=== PATIENT | female | born 1955 | race Caucasian/White ===

== ENCOUNTER → 2016-09-14 | Outpatient (CLI) | payer MEDICAID | LOC: BRMIMAGING 13:42 | PROVIDERS: ATTEND Family Medicine | DX: M54.6 Pain in thoracic spine (principal); M41.9 Scoliosis, unspecified | CPT/HCPCS: 72072-PO ==

== ENCOUNTER → 2016-10-10 | Outpatient (CLI) | payer MEDICAID | LOC: BRMIMAGING 11:21 | PROVIDERS: ATTEND Family Medicine | DX: Z12.31 Encounter for screening mammogram for malignant neoplasm of breast (principal) | CPT/HCPCS: G0202 ==

== ENCOUNTER → 2016-10-26 | Outpatient (CLI) | payer MEDICAID | LOC: BRMIMAGING 09:53 | PROVIDERS: ATTEND Family Medicine | DX: R92.8 Other abnormal and inconclusive findings on diagnostic imaging of breast (principal) | CPT/HCPCS: G0206 ==

== ENCOUNTER → 2017-04-02 | Outpatient (CLI) | payer MEDICAID | LOC: BRMIMAGING 14:08 | PROVIDERS: ATTEND Family Medicine | DX: R22.32 Localized swelling, mass and lump, left upper limb (principal); M81.0 Age-related osteoporosis without current pathological fracture | CPT/HCPCS: 73130-PO ==

== ENCOUNTER → 2017-04-19 | Outpatient (CLI) | payer MEDICAID | LOC: BRMIMAGING 12:26 | PROVIDERS: ATTEND Physician Assistant | DX: M25.562 Pain in left knee (principal) | CPT/HCPCS: 73560-PO ==